=== PATIENT | male | born 1950 | race Caucasian/White ===

== ENCOUNTER 2021-09-13 20:06 | Emergency (ER) | payer OTHER ==
[~2021-09-13] VITALS: Ht 177.8 cm; Wt 70.3 kg
[2021-09-13 20:45] LABS: URINE BILIRUBIN NEGATIVE (Negative); URINE BLOOD NEGATIVE (Negative); URINE CLARITY CLEAR; URINE COLOR YELLOW; URINE GLUCOSE-RANDOM* 3+ (Negative); URINE KETONES TRACE (Negative); URINE LEUKOCYTES-REFLEX NEGATIVE (Negative); URINE NITRITE-REFLEX NEGATIVE (Negative); URINE PROTEIN (DIPSTICK) NEGATIVE (Negative); URINE UROBILINOGEN 0.2 E.U./dl (0.2-1.0)
[2021-09-13 21:02] LABS: BASOPHILS 0.5 % (0.0-2.0); EOSINOPHILS 0.9 % (0.0-3.0); HEMATOCRIT 33.8 % (42.0-52.0); HEMOGLOBIN 11.2 gm/dL (14.0-18.0); LYMPHOCYTES 18.3 % (24.0-44.0); MCH 28.9 pg (26.0-34.0); MCHC 33.3 g/dL (28.0-37.0); MONOCYTES 7.9 % (1.0-8.0); PLATELET COUNT 256 thou/uL (150-400); POLYS 72.4 % (36.0-66.0); RBC 3.89 mil/uL (4.50-6.00); WBC 9.7 thou/uL (4.0-11.0)
[2021-09-13 21:09] LABS: CALCIUM 8.8 mg/dL (8.5-10.1); CREATININE 1.3 mg/dL (0.7-1.3); POTASSIUM 4.4 mmol/L (3.5-5.1)
[2021-09-13 21:13] LABS: ALBUMIN 3.4 g/dL (3.4-5.0); TOTAL BILIRUBIN 0.2 mg/dL (0.2-1.0); TOTAL PROTEIN 7.3 g/dL (6.4-8.2)
[2021-09-13] MEDS ORDERED: DOXYCYCLINE 10100 MG PO (21:39)
[2021-09-13] MEDS ORDERED: COLACE100 MG PO (21:39)
[2021-09-13] MEDS ORDERED: NORCO5 PO ×2 (21:39→22:20)
[2021-09-13] MEDS ORDERED: FLOMAX0.4 MG PO (21:42)
[2021-09-13 22:00] VITALS: BP 160/75
== END 2021-09-13 22:20 | disposition home or self-care (01) ==
LOC: ER 20:06
PROVIDERS: Physician Assistant
DX: N41.9 Inflammatory disease of prostate, unspecified (principal); I10 Essential (primary) hypertension; N40.0 Benign prostatic hyperplasia without lower urinary tract symptoms